=== PATIENT | female | born 1980 | race Caucasian/White ===

== ENCOUNTER 2024-03-25 09:57 | Emergency (ER) | payer MEDICAID, OTHER, SELFPAY ==
--- NOTE | ~2024-03-25 | XR_ITS ---
EXAMINATION: XR BILATERAL HIPS WITH AP PELVIS CLINICAL INFORMATION: Bilateral hip pain COMPARISON: None available. TECHNIQUE: AP view of the pelvis and single views of each hip were obtained. FINDINGS: Mild bilateral hip osteoarthritis with small marginal osteophytes. No significant joint space narrowing. No fracture or malalignment. No suspicious bone lesion or soft tissue calcification. XR/XR hip BI w PEL1V IMPRESSION: Mild bilateral hip osteoarthritis. Electronically signed by: Mark Lin MD 03/25/2024 01:37 PM EDT
[2024-03-25 10:13] VITALS: BP 129/66; PULSE 68; RESP 16; TEMP 37; O2SAT 98; BMI 27.5
[2024-03-25] MEDS: methylPREDNISolone Sod Succ 125 MG/2 ML VIAL 60 MG IM (10:44)
--- NOTE | 2024-03-25 10:49 | ED.GENADULT ---
HPI - General Adult General Chief complaint: General Medical Stated complaint: asthma-hip pain Time Seen by Provider: 03/25/24 10:34 Source: patient Mode of arrival: ambulatory Limitations: no limitations History of Present Illness ED Provider: RITA CLEMENS PA-C HPI narrative: 43 year old female with pmhx significant for asthma presents to the ED today for evaluation of slight shortness of breath x2 days. Reports history of asthma however has been out of her albuterol inhaler times a few days. [place] and is currently working with immigration to establish health insurance/medical care. Has been unable to refill her albuterol. She also endorses bilateral hip pain which began approximately 3 months ago. Reports pain primarily to her anterior hips bilaterally, worse with sitting. Denies injury, trauma, fall. Has not been taking any [id number] pain medications for this at home. No hx of VTE. Denies fever, chills, numbness/tingling/weakness of LEs, back pain, saddle anesthesia, bowel or bladder incontinence or retention, dysuria, hematuria. Related Data Previous Rx's ?Medication ?Instructions ?Recorded acetaminophen 650 mg 650 mg PO Q12H PRN pain (scale 03/25/24 tablet,extended release (Tylenol score 4-6) #30 tabs Arthritis Pain) albuterol sulfate 90 mcg/actuation 2 puff inhalation Q20M PRN 03/25/24 aerosol inhaler shortness of breath or wheezing #8.5 grams benzonatate 100 mg capsule 100 mg PO BID PRN cough #20 caps 03/25/24 prednisone 20 mg tablet 20 mg PO DAILY 4 days #4 tabs 03/25/24 Allergies Allergy/AdvReac Type Severity Reaction Status Date / Time Penicillins Allergy Anaphylaxis Verified 03/25/24 10:16 Review of Systems Review of Systems: Constitutional: No fever, chills, fatigue, night sweats, weight changes ENT/Mouth: No ear pain, hearing loss, nasal congestion, sinus pain, rhinorrhea, sore throat Eyes: No eye pain, swelling, redness, vision changes, discharge Cardio: No chest pain, palpitations, MONTANEZ, orthopnea, peripheral edema Pulm: No SOB, cough, sputum, wheezing, dyspnea, hemoptysis, +SOB GI: No nausea, vomiting, hematemesis, abdominal pain, diarrhea, constipation, hematochezia, melena : No irregular bleeding, dysuria, frequency, urgency, hesitancy, hematuria, flank pain, urinary flow changes, urinary incontinence or retention MSK: No back pain, neck pain, joint pain, myalgias, +b/l hip pain Skin: No lesions, rashes Neuro: No weakness, numbness, paresthesias, LOC, dizziness, headache Psych: No anxiety/panic, depression, SI/HI, AH/VH All other systems reviewed and are negative. [facility] Past Medical History Attestation statement: The following information was validated with the patient. Source: old records reviewed and nursing notes reviewed Social History Social History Advance Directives: No Do you have a plan to hurt others: No Plan Physical Exam ED Vital Signs: Vital Signs - 24 hr 03/25/24 10:13 03/25/24 13:54 Temperature 98.6 F 98.2 F Pulse Rate 68 81 Respiratory Rate 16 16 Blood Pressure 129/66 106/63 Pulse Oximetry 98 96 Oxygen Delivery Method Room Air Room Air BMI result Body Mass Index 27.5 Vital signs stable General: Well appearing, in no acute distress. Skin: Warm, dry, intact. No rashes or lesions. Head: Normocephalic, atraumatic. EENT: Hearing is intact b/l. Conjunctiva clear. PERRLA. Moist mucous membranes.? Neck: Supple without LAD Cardiac: Chest wall symmetric. RRR Lungs: Normal respiratory effort without accessory muscle use. CTA bilaterally. No rales, rhonchi, or wheezes.? Back: No midline spinous or paraspinal tenderness. No step off deformity. Ext: Upper and lower extremities atraumatic, without tenderness, deformity, swelling or erythema. Full ROM throughout. TTP over bilateral illiac crests, no palpable deformity. FROM intact to hips. Neuro: AOx3. Normal speech. Ambulating with steady gait. Psych: Appropriate mood and affect. Responds appropriately to questions. Course Course Course Narrative: 7604-- x-ray pelvis reveals mild osteoarthritis. Patient treated with dose of Solu-Medrol in ED today. Four days of prednisone sent to pharmacy along with albuterol inhaler refill. Given osteoarthritis, Tylenol arthritic strength sent to pharmacy. Patient has remained stable throughout ED visit today. Discussed worrisome signs and symptoms and when to return to the ED. All questions answered at this time. Patient is agreeable with disposition and stable for discharge. Medications Administered Discontinued Medications Generic Name Dose Route Start Last Admin Trade Name Becki PRN Reason Stop Dose Admin Methylprednisolone Sodium Succinate 60 mg 03/25/24 10:34 03/25/24 10:44 Methylprednisolone Sod Succ 125 Mg/2 Ml Vial IM 03/25/24 10:35 60 mg ONCE ONE Administration Medical Decision Making Medical Decision Making MDM Narrative: 43 year old female with pmhx significant for asthma presents to the ED today for evaluation of slight shortness of breath x2 days. Vital signs stable. Afebrile. Not hypoxic. Upper and lower extremities atraumatic, without tenderness, deformity, swelling or erythema. Full ROM throughout. TTP over bilateral illiac crests, no palpable deformity. FROM intact to hips. lungs clear. No increased effort of breathing. No tripoding. Differential diagnosis includes asthma exacerbation, arthritis, sciatica Plan for xr hips, solumedrol, and re-evaluation. Differential Diagnosis Differential Diagnoses: The differential diagnosis associated with the presentation includes as above. Admission/Observation not indicated. Independent Interpretation I performed an independent interpretation of an: Plain X-Ray Interpretation: XR pelvis + bilateral hips with mild osteoarthritis, no fracture, agree with radiologist's interpretation. Radiology Impression Discussion of test interpretation with radiology: I have reviewed the radiologist's reading. Radiologist Impression: EXAMINATION: XR BILATERAL HIPS WITH AP PELVIS CLINICAL INFORMATION: Bilateral hip pain COMPARISON: None available. TECHNIQUE: AP view of the pelvis and single views of each hip were obtained. FINDINGS: Mild bilateral hip osteoarthritis with small marginal osteophytes. No significant joint space narrowing. No fracture or malalignment. No suspicious bone lesion or soft tissue calcification. XR/XR hip BI w PEL1V IMPRESSION: Mild bilateral hip osteoarthritis. Electronically signed by: Mark Lin MD 03/25/2024 01:37 PM EDT Prescription Management I considered prescription management with: Pain Medication (tylenol) and Other (albuterol, tessalon perles) Chronic Conditions Patient?s care impacted by: Other (asthma) Social Determinants Patient?s care significantly limited by Social Determinants of Health including: Other Social Determinant of Health Critical Care Time Critical Care Time Critical Care Time: No Discharge Plan Discharge Clinical Impression: Asthma, Osteoarthritis Patient Disposition: Home, Self-Care Instructions: Asthma (ED), Osteoarthritis (ED) Additional Instructions: You were evaluated in the ED today for your asthma and bilateral hip pain. You were given a dose of steroids in the ED today. A small course of prednisone has been sent to your pharmacy. Take this as directed over the next 4 days starting tomorrow. A refill of your albuterol inhaler has been sent to your pharmacy. Tessalon Perles have been sent to your pharmacy for you to take as needed for cough. The x-ray of your pelvis/hips revealed mild osteoarthritis. Tylenol arthritic strength has been sent to your pharmacy for you to take as needed for pain. You have also been provided with a referral to a PCP. You may call them to establish care. They will not call you. Return with new or worsening symptoms. In the case of an emergency call 911. Prescriptions: New prednisone 20 mg tablet 20 mg PO DAILY 4 Days Qty: 4 0RF benzonatate 100 mg capsule 100 mg PO BID PRN (Reason: cough) Qty: 20 0RF albuterol sulfate 90 mcg/actuation HFA aerosol inhaler 2 puff inhalation Q20M PRN (Reason: shortness of breath or wheezing) Qty: 8.5 0RF acetaminophen [Tylenol Arthritis Pain] 650 mg tablet extended release 650 mg PO Q12H PRN (Reason: pain (scale score 4-6)) Qty: 30 0RF Referrals: [facility] [place] Family [facility] [Provider Group] [facility] [place] Primary Care, Jeanne [Provider Group] [facility] [place] Primary Care,Madhu [Provider Group] [facility] [Provider Group] Interventions: ED Discharge Assessment Last Done: 03/25/24 14:03 Discharge Date/Time: 03/25/24 14:19 Print Language: Romansh
[2024-03-25 13:54] VITALS: BP 106/63; PULSE 81; RESP 16; TEMP 36.8; O2SAT 96
[2024-03-25 14:03] VITALS: BP 106/63; PULSE 81; RESP 16; TEMP 36.8; O2SAT 96
== END 2024-03-25 14:19 | disposition home or self-care (01) ==
PROVIDERS: Emergency Provider Student in an Organized Health Care Education/Training Program
DX: M16.0 Bilateral primary osteoarthritis of hip (principal); J45.909 Unspecified asthma, uncomplicated; M25.552 Pain in left hip; M25.551 Pain in right hip
CPT/HCPCS: 73521; 96372; 99284; J2919